=== PATIENT | male | born 1935 | race Caucasian/White ===

== ENCOUNTER 2020-11-12 00:21 | Outpatient (CLI) | payer OTHER, SELFPAY ==
[2020-11-12 18:26] LABS: SARS-CoV-2 RNA PCR Negative
== END 2020-11-12 00:22 | disposition home or self-care (01) ==
LOC: ANHCOVIDDT 00:21
PROVIDERS: PCP Internal Medicine; Visit Provider Urology
DX: Z01.812 Encounter for preprocedural laboratory examination (principal); Z20.822 Contact with and (suspected) exposure to COVID-19
CPT/HCPCS: C9803; U0003; U0005

== ENCOUNTER 2020-11-15 01:10 | Day surgery (SDC) | payer OTHER, SELFPAY ==
[2020-11-05 13:23] VITALS: BMI 32.9
--- NOTE | 2020-11-07 13:57 | PM.HPGS ---
History of Present Illness History of Present Illness Consent: Risks, benefits, and alternatives have been discussed and questions answered. Patient agrees to proceed with procedure. Chief complaint: prostate CA Narrative: Deangelo Champion is a 85 year old male who is a patient of Dr. Alessandra Paulino who recently presented with a PSA of 125.7ng/dl. He was diagnosed with clinically localized adenocarcinoma of the prostate and is scheduled for definitive pelvic IMRT. He's opted for placement of SpaceOAR to minimize risk of rectal irritation. Review of Systems Cardiovascular: Cardiovascular: Denies chest pain, Denies lightheadedness, Denies palpitations and Denies dyspnea Respiratory: Respiratory: Denies dyspnea Gastrointestinal: Gastrointestinal: Denies diarrhea, Denies nausea and Denies vomiting Genitourinary: Genitourinary: Denies hematuria and Denies dysuria Endocrine: Endocrine: Denies palpitations [facility] Social History Social History Smoking packs per day: 2 Smoking cigarettes per day: 40.0 Years smoked: 48 Smoking pack-years: 96.00 Smoking status: Former smoker Tobacco type: cigarettes Second hand tobacco smoke exposure: No Additional smoking assessment comments: QUIT 1991 Alcohol intake: current Drinks per week: 5 Substance use: never Substance use type: does not use Spiritual care concerns: No Meds Home Medications and Allergies Home Medications Medication Instructions Recorded Confirmed Type aspirin [Aspirin Low-Strength] 81 mg PO DAILY 11/05/20 11/05/20 History atenolol 25 mg QAM 11/05/20 11/05/20 History atorvastatin 40 mg HS 11/05/20 11/05/20 History cholecalciferol (vitamin D3) 125 mcg PO DAILY 11/05/20 11/05/20 History docusate sodium [Stool Softener] 100 mg PO DAILY 11/05/20 11/05/20 History magnesium 250 mg PO HS 11/05/20 11/05/20 History pantoprazole 40 mg PO QAM 11/05/20 11/05/20 History Allergies Allergy/AdvReac Type Severity Reaction Status Date / Time No Known Allergies Allergy Verified 11/05/20 13:19 Exam Const: General: no acute distress Resp: Effort & Inspection: normal respiratory effort GI: Inspection: non-distended GI Palp: No abdominal tenderness and No Guarding due to palpation present (GI) Auscultation: normal bowel sounds Assessment and Plan Assessment and plan (1) Prostate cancer: Code(s): C61 - Malignant neoplasm of prostate Status: Acute Assessment and Plan: Transrectal ultrasound with transperineal placement of SpaceOAR. Pt. aware of risks of this procedure including, but not limited to, rectal injury, urinary tract infection with possible sepsis or septic shock, hematuria and inability to deliver the SpaceOAR. He also aware there is no alternative procedure to accomplish the same ends at this time.
--- NOTE | 2020-11-14 13:49 | P.PNAN_ITS ---
Anes - Initial Pre Proc Eval Procedure: Operation Date: 11/15/20 12:15 Proposed Procedures p Insertion SpaceOAR Hydrogel System - Jatin Downing MD Date/Time: 11/14/20 13:49 Surgeon: Jatin Downing MD Pre Op Diagnosis: prostate CA Patient Data Age: 85 Gender: M Height: 1.88 m Weight: 116.36 kg Allergies Allergy/AdvReac Type Severity Reaction Status Date / Time No Known Allergies Allergy Verified 11/15/20 10:11 Home Medications Medication Instructions Recorded Confirmed Type aspirin [Aspirin Low-Strength] 81 mg PO DAILY 11/05/20 11/15/20 History atenolol 25 mg QAM 11/05/20 11/15/20 History atorvastatin 40 mg HS 11/05/20 11/15/20 History cholecalciferol (vitamin D3) 125 mcg PO DAILY 11/05/20 11/15/20 History docusate sodium [Stool Softener] 100 mg PO DAILY 11/05/20 11/15/20 History magnesium 250 mg PO HS 11/05/20 11/15/20 History pantoprazole 40 mg PO QAM 11/05/20 11/15/20 History Patient hx anesthesia problems: none Family hx anesthesia problems: none [facility] Past Medical History Medical History (Updated 11/14/20 @ 13:51 by Armando Iverson MD) Atrial fibrillation HTN (hypertension) Hypercholesterolemia Obesity ALLEY on CPAP Pacemaker Prostate cancer Social History Social History Smoking packs per day: 2 Smoking cigarettes per day: 40.0 Years smoked: 48 Smoking pack-years: 96.00 Smoking status: Former smoker Tobacco type: cigarettes Second hand tobacco smoke exposure: No Additional smoking assessment comments: QUIT 1991 Alcohol intake: current Drinks per week: 5 Substance use: never Substance use type: does not use Living arrangements: with family Spiritual care concerns: No Anes - Eval Final PreProcedure Day of Procedure 11/14/20 13:49 Patient weight: obese Heart: regular rate and rhythm Lungs: clear to auscultation and normal air movement Airway: Mallampati scale class II Neurological: alert and oriented Last oral intake: >/= 8 hours ASA classification: III Emergent: no Anesthetic plan: proceed Anesthesia type and monitoring: general GIVS and LMA Informed Consent: The patient's anesthetic plan and its attendant risks and benefits were discussed with the patient/family/POA. Questions were solicited and answers provided to the satisfaction of the patient/family/POA.
[2020-11-15] VITALS (8 sets, daily range): BP systolic 103–162; BP diastolic 57–81; PULSE 50–54; RESP 12–16; TEMP 36.1–36.6; O2SAT 96–100
--- NOTE | 2020-11-15 07:15 | WPDHPUPDATE1 ---
History and Physical Update Update Date/Time: 11/15/20 07:15 History and Physical has been reviewed, including an updated exam of the patient. There are NO changes in the patient's condition. Risks, benefits, and alternatives have been discussed and questions answered. Patient agrees to proceed with procedure.
--- NOTE | 2020-11-15 10:18 | ECG_ITS ---
Measurements Intervals [place] Rate: 51 P: 180 AR: 215 QRS: 57 QRSD: 181 T: 94 QT: 492 QTc: 454 Interpretive Statements ELECTRONIC ATRIAL PACEMAKER ELECTRONIC VENTRICULAR PACEMAKER NO FURTHER INTERPRETATION IS POSSIBLE ATYPICAL ECG Electronically Signed On 11-15-2020 11:45:[address]OTOGRAPHER by Jayson Loredo D.O.
[2020-11-15] MEDS: LACTATED RINGERS 1,000 ML 30 ML IV CONT (10:48)
[2020-11-15] MEDS: ceFAZolin 2 GM/D5W 50 ML 2 GM/50 ML BAG IVPB (12:18)
--- NOTE | 2020-11-15 12:44 | PM.PROC ---
Procedure Note - Detailed Date of procedure: 11/15/20 Pre-op diagnosis: prostate CA Post-op diagnosis: same Procedure performed: 1) Activity: no driving or important decisions x24 hours. 2) Diet: resume your normal, pre-admission diet. 3) Follow-up: Radiation oncology center has been notified of SpaceOAR placement and will contact patient regarding follow-up there. . Description of procedure: This patient has been diagnosed with prostate cancer. Patient has met with a radiation oncologist who has prescribed a course of radiation for treatment of the malignancy. Please refer to the Radiation Oncologist's note for radiation method, dose, number of fractions. After discussing with the radiation oncologist and the patient, it has been agreed upon to proceed with SpaceOAR placement. The purpose of SpaceOAR is to reduce rectal irradiation during radiation therapy by placing an absorbable polyethylene glycol (PEG) hydrogel (SpaceOAR) into perirectal fat space, thereby pushing the rectum away from the prostate. Prior to the procedure, a timeout was performed confirming the patient's identity and planned the procedure. Anesthesia was induced without complication. Antibiotics were administered prophylactically, and the patient completed an enema at home prior to the procedure. The patient was positioned in the dorsal lithotomy position. A transrectal ultrasound probe was inserted per rectum with clear visualization of the prostatic base and apex. SpaceOAR hydrogel was prepared as described in the social organization professor?s 'Instructions For Use'. Under transrectal ultrasound guidance, a 15 cm 18G needle was inserted, transperineal, through the rectourethralis muscle and the needle tip advanced into the perirectal fat posterior to the prostate. The needle position, and downward bevel, were confirmed in both sagittal and axial phillips. 3-5cc of Sterile Saline was used to hydro-dissect the space between the Denonvilliers? fascia and anterior rectal wall. Aspiration did not yield any bleeding. With the needle tip at mid gland, the axial field was viewed to confirm the needle was not in the rectal wall -- movement of the needle tip without corresponding movement of the rectal wall confirmed perirectal placement. The assembled SpaceOAR delivery system was then attached to the 18G needle. Under ultrasound guidance in the sagittal plane, a smooth, continuous injection technique was used to dispense all 10cc of the SpaceOAR hydrogel into the space between the prostate and rectum. Optimal visualization of the needle during hydrogel administration was maintained at all times. An axial measurement of the space between the prostate (mid gland) and rectum immediately post-SpaceOAR injection was noted and measured 1.2cm. No suspected penetration or compromise of the rectal wall occurred. Anesthesia: GLMA Surgeon: Jatin Downing MD Estimated blood loss (mL): 0 Drains: No Packing: No Pathology: none sent Complications: No immediate complications Condition: stable Disposition: PACU
[2020-11-15] MEDS: fentaNYL CITRATE INJ (*CRX) 100 MCG/2 ML VIAL 25 MCG IV PUSH (13:10)
== END 2020-11-15 14:28 | disposition home or self-care (01) ==
PROVIDERS: PCP Internal Medicine; Visit Provider Urology
PROC: (CPT 55874; principal; 2020-11-15 12:15)
DX: C61 Malignant neoplasm of prostate (principal); Z87.891 Personal history of nicotine dependence; Z79.82 Long term (current) use of aspirin; Z95.0 Presence of cardiac pacemaker
CPT/HCPCS: 55874; 93005; C1889; C9803; J0690; J2405; J2704; J3010; J7120; U0003; U0005